=== PATIENT | female | born 1960 | race Caucasian/White ===

== ENCOUNTER 2018-03-02 10:14 | Inpatient (IN) | payer MEDICARE, OTHER ==
[2018-02-20 15:09] VITALS: BMI 32.4
--- NOTE | 2018-03-01 16:59 | HP ---
HISTORY AND PHYSICAL SURGERY: 03/02/2018 Tran Iqbal is a 58-year-old patient seen with symptomatic left knee osteoarthritis. After having treatment options discussed, she elected to proceed with left total knee arthroplasty. Consent regarding the procedure was obtained. Medical clearance was provided by Dr. Hector. PAST MEDICAL HISTORY: Noncontributory. PAST SURGICAL HISTORY: None reported. DAILY MEDICATIONS: Aleve. ALLERGIES: None. SOCIAL HISTORY: Patient denies tobacco use. PHYSICAL EXAMINATION: Evaluation of the left knee: Range of motion is -2 to 115 degrees. Tenderness medial joint line. Crepitus medial and patellofemoral compartments with range of motion. Pain with patellofemoral compression. Ligaments stable. Hip rotation without pain. Distal neurovascular exam is intact. RADIOGRAPHS: Radiographs of the left knee reveal severe medial moderate to severe patellofemoral compartment osteoarthritis. IMPRESSION: Left knee osteoarthritis. PLAN: Left total knee arthroplasty. MMODL / IJN: [id number] /
[~2018-03-02 10:14] MED LIST: ACETAMINOPHEN TAB 500 MG TAB PO ONE; DEXAMETHASONE SOD PHOSPHATE 10 MG/ML 1 ML VIAL IV ONE; MELOXICAM 7.5 MG TAB PO ONE; MIDAZOLAM 2 MG/2 ML VIAL IV PRN; ONDANSETRON 4 MG/2 ML VIAL IVP ONE; SCOPOLAMINE 1.5MG/72HR PATCH TRANSDERM ONE; TRANEXAMIC ACID 1,000 MG in SODIUM CHLORIDE 0.9% 50 ML IVPB ONE; ceFAZolin IN SWFI 2 GM/20 ML SYRINGE IVP ONE
[2018-03-02] MEDS: LACTATED RINGERS 1,000 ML IV SCH ×2 (11:10→17:53)
[2018-03-02] MEDS ORDERED: LIDOCAINE 1% 20 ML VIAL (10MG/ML) FOR IV START INTRADERMA ONE (11:11)
[2018-03-02] MEDS ORDERED: fentaNYL (PF) 50 MCG/ML 2 ML AMP IVP ONE ×2 (11:22→13:05)
[2018-03-02] MEDS ORDERED: ROPIVACAINE 1,100 MG, SODIUM CHLORIDE 0.9% 500 ML 330 ML MISCELLANE PRN ×2 (11:52)
--- NOTE | 2018-03-02 11:54 | P.ONQ ---
Anesthesiology Proc Note - PNB - Peripheral Nerve Block Performed Left Adductor Canal Infusion Time Out Performed: Yes Procedure Start Time: 11:18 Indication: Acute Post-Operative Pain, Analgesia Specifically requested for management of pain by DrHumberto: Campos Yousif Sedation Type: Sedate with meaningful contact maintained Preparation: Sterile Prep Position: Supine Catheter Depth at Skin (cm): 8 Catheter: Indwelling Needle Types: Other (see comment) (pajunk) Needle Size: 100mm (4") Needle Gauge: 18 Technique: Ultrasound Injectate: 0.5% Ropivacaine (see comment for volume) (20cc) Blood Aspirated: No Pain Paresthesia on Injection Noted: No Resistance on Injection: Normal Events: Uneventful and Well Tolerated
[2018-03-02] MEDS ORDERED: ROPIVACAINE 246.25 MG, EPINEPHrine 0.5 MG, KETOROLAC 30 MG, cloNIDine HCL/PF 80 MCG, WA... MISCELLANE ONE ×5 (12:17)
[2018-03-02] MEDS ORDERED: MIDAZOLAM 2 MG/2 ML VIAL IVP ONE (13:05)
[2018-03-02] MEDS ORDERED: SODIUM CHLORIDE 0.9% 250 ML BAG ONE (13:09)
[2018-03-02] MEDS ORDERED: LIDOCAINE 1% INJ 10MG/ML (20 ML MDV) ONE (13:09)
[2018-03-02] MEDS ORDERED: PROPOFOL 10 MG/ML 20 ML VIAL IV ONE (13:09)
[2018-03-02] MEDS ORDERED: MIDAZOLAM 2 MG/2 ML VIAL ONE (13:09)
[2018-03-02] MEDS ORDERED: TRANEXAMIC ACID 1,000 MG/10 ML VIAL ONE (13:09)
[2018-03-02] MEDS ORDERED: fentaNYL (PF) 50 MCG/ML 2 ML AMP ONE (13:09)
[2018-03-02] MEDS ORDERED: ceFAZolin 3,000 MG in SODIUM CHLORIDE 0.9% IRRIGATIO 3,000 ML IRRIGATION ONE (13:46)
[2018-03-02] MEDS ORDERED: SODIUM CHLORIDE 0.9% 500 ML 500 ML IV ONE (14:40)
[2018-03-02] MEDS ORDERED: LACTATED RINGERS 1,000 ML IV ONE (14:40)
[2018-03-02] MEDS ORDERED: ONDANSETRON 4 MG/2 ML VIAL IVP PRN (15:16)
[2018-03-02] MEDS ORDERED: NALOXONE 0.4 MG/ML 1 ML VIAL IV PRN (15:16)
[2018-03-02] MEDS ORDERED: HYDROcodone/APAP 5-325MG 1 EACH TAB PO PRN (15:16)
[2018-03-02] MEDS ORDERED: HYDROmorphone 1 MG/ML 1 ML SYRINGE IVP PRN (15:16)
--- NOTE | 2018-03-02 15:16 | P.OP ---
Date of Procedure: 03/02/18 Preoperative Diagnosis: Left knee osteoarthritis Postoperative Diagnosis: Same Procedure(s) Performed: Left total knee arthroplasty Implants: 1. Depuy attune size 6 narrow left cruciate retaining cemented femur 2. Depuy attune size 6 cemented fixed tibial baseplate 3. Depuy attune size 6 polyethylene tibial insert 7 millimeter fixed bearing cruciate retaining 4. Depuy attune 38 mm all polyethylene cemented patella Anesthesia: GETA, MAC, regional (Adductor canal catheter) Surgeon: Campos Yousif Turbine Attendant #1: Sunday James Estimated Blood Loss (ml): 50 Pathology: other (Bone) Condition: stable Disposition: PACU Indications for Procedure: 58-year-old patient seen with symptomatic left knee osteoarthritis. After treatment options discussed, she elected to proceed with total knee arthroplasty. Operative Findings: See description of procedure Description of Procedure: Patient was taken to the operative suite after having an adductor canal catheter placed by the department of anesthesia for postoperative pain control. Patient underwent a spinal anesthetic by the department of anesthesia. Patient was given preoperative IV intake antibiotics and TXA. A well-padded tourniquet was placed about the left lower extremity. The lower extremity was then prepped and draped in the normal sterile orthopedic fashion. The extremity was elevated, a tourniquet was insufflated to 300. A standard anterior incision was made sharply through skin. The patient did feel pain at the incision site. At this point a general anesthetic was administered by the department anesthesia. We noted complete anesthesia and the case resumed. I finished the superficial skin incision. Dissection was taken down through the subcutaneous soft tissues down to the extensor mechanism. A medial arthrotomy was performed, patella was everted and knee was flexed. There was advanced osteoarthritis noted. I introduced my distal intramedullary femoral drill. I then introduced the distal femoral cutting jig. Nathan KRAFT secured the cutting jig with 2 pins. I held retractors in position while Nathan KRAFT performed the distal femoral resection through the guide area we now removed her distal femoral cutting guide. We now placed our 4-in-1 femoral cutting block and positioned and it was secured with 2 pins by Nathan KRAFT while I held the block in position. The distal femoral finishing was now completed. A proximal tibial cutting guide was positioned. I held the guide in the appropriate position with both hands well Nathan KRAFT inserted stabilizing pins into the guide. Proximal tibial cut was made. We now placed a trial femoral component into position, along with an appropriate size tibial tray and insert. We now took the knee through range of motion and had full extension good flexion and good overall soft tissue balance noted. The patella was everted and stabilized with 2 towel clips held by Nathan KRAFT while I performed a flush with patellar quad tendon utilizing a fresh sawblade. We templated the patella, appropriate drill holes were made. An appropriate trial patella was positioned, knee was taken through full range of motion with the patella tracking very nicely. The trial patella was removed. Drill holes were made through the femoral component. All trial components were removed after marking off the appropriate rotation of the tibia. Retractors were now positioned along the proximal tibia. An appropriate keel punch was made with the appropriate size tibial guide by myself on Nathan KRAFT assisted by holding retractors. At this point appropriate size implants were chosen and opened. The joint was irrigated copiously with pulse lavage mechanical irrigation. The posterior capsule was infiltrated with local analgesic. The wound was irrigated with pulse lavage mechanical irrigation. We mixed antibiotic methylmethacrylate. We placed the knee into flexion. We placed multiple retractors assisted by Nathan KRAFT to expose the proximal tibia. Once the methyl methacrylate was ready, the tibial component was cemented into place removing any excess methylmethacrylate form by both myself and Nathan KRAFT. The femoral component was cemented into place removing the removing any excess methylmethacrylate performed by both myself and Nathan KRAFT. We then inserted the appropriate size polyethylene tibial insert. We made sure that it was locked into position. We took the knee into full extension, and then back in a flexion making sure we had removed any excess methylmethacrylate. The patellar component was then cemented down and secured with clamp. Excess methylmethacrylate removed. We kept the knee in full extension, patellar clamp in position until methylmethacrylate had hardened. Once it had hardened the patellar clamp was removed. The knee was taken through full range of motion. The patella tracked nicely. There was good soft tissue balancing. The tourniquet was now released. Additional hemostasis was achieved via electrocautery. A second gram of TXA was given. The wound again was irrigated with pulse lavage mechanical irrigation. The superficial soft tissues were infiltrated local analgesic. The extensor mechanism was repaired with Vicryl. We checked the repair with range of motion and it was stable. The subcutaneous soft tissues were repaired with Vicryl in layers. The skin was approximated with pernio/Dermabond. Sterile dressings were applied followed by loose web roll and Raffi bandage. The patient was transferred to a bed, and taken to recovery in stable and satisfactory condition. Nathan KRAFT assisted with this complex procedure.
[2018-03-02] MEDS: HYDROmorphone 0.5 MG/0.5 ML SYRINGE IVP PRN ×3 (15:41→16:03)
--- NOTE | 2018-03-02 15:52 | XR ---
EXAMINATION TYPE: XR knee limited LT DATE OF EXAM: 03/02/2018 COMPARISON: NONE HISTORY: 58-year-old female evaluation for postoperative abnormality and alignment TECHNIQUE: 2 views FINDINGS: Anterior skin beverly with anterior soft tissue swelling with soft tissue air as well as intra-articu lar air compatible with recent operation. Images show placement of left total knee arthroplasty. Both distal femoral and proximal tibial components of the prosthesis are well seated without periprosthet ic fracture. Alignment grossly anatomic. IMPRESSION: Uncomplicated postoperative appearance left total knee arthroplasty.
[2018-03-02] MEDS: HYDROmorphone 1 MG/ML 1 ML SYRINGE IVP PRN ×2 (16:08→17:17)
[2018-03-02] MEDS: HYDROcodone/APAP 5-325MG 1 EACH TAB PO PRN (19:04)
[2018-03-02] MEDS: ceFAZolin IN SWFI 2 GM/20 ML SYRINGE IVP SCH (20:47)
[2018-03-02] MEDS: ENOXAPARIN 30 MG/0.3 ML SYRINGE SQ SCH (20:47)
[2018-03-02] MEDS ORDERED: TEMAZEPAM 15 MG CAP PO PRN (21:43)
--- NOTE | 2018-03-02 23:33 | CONS ---
CONSULTATION DATE OF CONSULTATION: 03/02/2018. REASON FOR CONSULTATION: Medical management requested by Dr. Yousif. CONSULTATION: This is a pleasant 58-year-old patient who has undergone a left total knee arthroplasty. Some pain present in the operative site. No nausea, vomiting. No chest pain. PAST MEDICAL HISTORY: Chronic stable medical conditions include fibromyalgia, primary osteoarthritis, GERD, and chronic insomnia. Denies any cardiac history. No dizziness. No lightheadedness right now. Did tolerate some diet. Propped up in bed. REVIEW OF SYSTEMS: CONSTITUTIONAL: None. HEENT: None. RESPIRATORY: None. GASTROINTESTINAL: Heartburn. GENITOURINARY: None. MUSCULOSKELETAL: Arthritic pain in many joints. DERMATOLOGICAL: None. HEMATOLOGIC: None. LYMPHATIC: None. PSYCHIATRY: None. NEUROLOGICAL: Does not sleep well. PAST MEDICAL HISTORY: Fibromyalgia, osteoarthritis, insomnia, GERD. PAST SURGICAL HISTORY: Breast surgery, cholecystectomy, tubal ligation, pulmonary disease, right shoulder surgery x3, left shoulder surgery, left knee surgery, breast implants, tummy tuck. PSYCHIATRY: History of anxiety. SOCIAL HISTORY: The patient smoked for about 14 years, stopped smoking 26 years ago. Alcohol occasionally. The patient lives with son and [id number]. FAMILY HISTORY: Cancer, type unknown. HOME MEDICATIONS: 1. Ultram 1 tablet p.o. at bedtime p.r.n. 2. Restoril 50 mg at bedtime p.r.n. 3. Aleve 220 mg p.o. b.i.d. 4. Fosamax 70 mg p.o. on Friday. ALLERGIES: None. PHYSICAL EXAMINATION: Temperature 97, pulse 73, respirations 16, blood pressure 109/69, pulse 97% on room air. Recently when I saw the patient, 94% on room air. GENERAL APPEARANCE: Well built. BMI 32.4. Sitting up, comfortable. EYES: Pupils equal. Conjunctivae normal. HEENT: External nose and ears normal. Oral cavity normal. NECK: JVD not raised. Mass not palpable. Respiratory effort normal. LUNGS: Fair air entry. CARDIOVASCULAR: 1st and 2nd heart sounds. No edema. ABDOMEN: Soft, nontender. Liver and spleen not palpable. LYMPHATIC: No lymph nodes palpable in the neck or axillae. PSYCHIATRY: Alert and oriented x3. Mood and affect normal. NEUROLOGICAL: Pupils equal. Cranial nerves grossly intact. Power and sensation grossly intact. MUSCULOSKELETAL: Evidence of osteoarthritis especially in the hands. Dressing over the left knee. INVESTIGATIONS: No blood work. ASSESSMENT: 1. Left total knee arthroplasty. 2. Chronic fibromyalgia. 3. Primary osteoarthritis, bilateral. 4. Chronic insomnia idiopathic. 5. Gastroesophageal reflux disease. 6. Obesity, BMI 32.4. PLAN: The patient's Restoril will be resumed. The patient is on IV Ancef. Also getting Lovenox for DVT prophylaxis. Pain control is in place per Dr. Yousif. Patient also getting IV fluids. The patient is to see a dietitian for weight loss as an outpatient. Thank you, Dr. Yousif. MMYESSYL / KRISTIN: [id number] /
[2018-03-03] MEDS: LACTATED RINGERS 1,000 ML IV SCH ×4 (02:56→20:39)
[2018-03-03] MEDS: ceFAZolin IN SWFI 2 GM/20 ML SYRINGE IVP SCH (04:46)
[2018-03-03] MEDS: HYDROcodone/APAP 5-325MG 1 EACH TAB PO PRN ×2 (04:51→11:21)
[2018-03-03 07:41] LABS: Basophils % (A) 0 %; Eosinophils # (A) 0.1 k/uL (0-0.7); Eosinophils % (A) 1 %; HCT 32.5 % (34.0-46.0); HGB 10.5 gm/dL (11.4-16.0); Lymphocytes # (A) 0.9 k/uL (1.0-4.8); Lymphocytes % (A) 14 %; MCH 28.6 pg (25.0-35.0); MCHC 32.3 g/dL (31.0-37.0); MCV 88.5 fL (80.0-100.0); Mean Platelet Volume 7.2; Monocytes # (A) 0.4 k/uL (0-1.0); Monocytes % (A) 5 %; Neutrophils # (A) 5.3 k/uL (1.3-7.7); Neutrophils % (A) 79 %; Platelet Count 197 k/uL (150-450); RBC 3.68 m/uL (3.80-5.40); RDW 13.5 % (11.5-15.5); WBC 6.8 k/uL (3.8-10.6)
[2018-03-03] MEDS: MELOXICAM 7.5 MG TAB PO SCH (08:10)
[2018-03-03] MEDS: traMADol 50 MG TAB PO PRN (08:10)
[2018-03-03] MEDS: ENOXAPARIN 30 MG/0.3 ML SYRINGE SQ SCH ×2 (08:11→20:38)
--- NOTE | 2018-03-03 09:00 | P.PN ---
Progress Note - Text Progress Note Date: 03/03/18 Vital Signs - 8 hr 03/03/18 07:00 Temperature 98.5 F Pulse Rate [ 83 Pulse Oximetery ] Respiratory 18 Rate Blood Pressure 99/62 [Right Arm Sitting] O2 Sat by Pulse 94 L Oximetry Date of service 03/03/2018 Anesthesia pain rounds Patient evaluated at the bedside at 7:05 AM The patient is status post[ 1] adductor canal catheter placement. The catheter was placed for postoperative pain control, status post total left knee arthroplasty. Ropivacaine 0.2% is infusing at 8 mLs per hour. The patient has no complaints of the left lower extremity numbness or weakness. Patient's VAS score is VAS 2 -10. Assessment: Patient's adductor canal catheter is in place and working appropriately. Plan: continue infusion and adjust it as needed.
[2018-03-03] MEDS ORDERED: HYDROcodone/APAP 7.5-325MG 1 EACH TAB PO PRN (11:54)
--- NOTE | 2018-03-03 12:15 | P.PN ---
Subjective Progress Note Date: 03/03/18 Principal diagnosis: Status post left total knee arthroplasty Patient is seen today resting in her hospital bed. She did note some increase in pain, I did adjust her oral medication. She's ambulated with therapy. She denies any fevers or chills, chest pain or shortness of breath Objective - Vital Signs Vital signs: Vital Signs Temp 98.5 F 03/03/18 07:00 Pulse 83 03/03/18 07:00 Resp 18 03/03/18 07:00 BP 99/62 03/03/18 07:00 Pulse Ox 94 L 03/03/18 07:00 Intake & Output 03/02/18 03/03/18 03/03/18 18:59 06:59 18:59 Intake Total 1201 Output Total 50 Balance 1151 Weight 88.451 kg Intake: IV 1201 Output: Estimated Blood Loss 50 Other: # Voids 1 - Exam Left lower extremity: Incision is clean, dry, and intact. The exofin fusion tape is in good condition. There is minimal soft tissue swelling and ecchymosis surrounding the medial and lateral aspects of the incision. Calf is soft, no tenderness with palpation. Plantar flexion, dorsiflexion, EHL, FHL are intact. Sensory exam to light touch throughout the extremity is intact, dorsal pedis pulses 2+. - Labs CBC & Chem 7: 03/03/18 07:01 Labs: Abnormal Lab Results - Last 24 Hours (Table) 03/03/18 Range/Units 07:01 RBC 3.68 L (3.80-5.40) m/uL Hgb 10.5 L (11.4-16.0) gm/dL Hct 32.5 L (34.0-46.0) % Lymphocytes # 0.9 L (1.0-4.8) k/uL Assessment and Plan Plan: Assessment: Postop day 1 status post left total knee arthroplasty Plan: Pain control, I did increase [place] 7.5 mg/325 mg GI and DVT prophylaxis, continue current medication Daily dressing changes/ice and elevate Encourage incentive spirometer Continue work with physical therapy and use of CPM Medical recommendations Discharge planning: Overall discharged home tomorrow Time with Patient: Less than 30
[2018-03-03] MEDS: HYDROmorphone 1 MG/ML 1 ML SYRINGE IVP PRN ×3 (12:42→23:56)
--- NOTE | 2018-03-03 15:20 | US ---
EXAMINATION TYPE: US venous doppler duplex LE LT DATE OF EXAM: 03/03/2018 1:11 PM COMPARISON: NONE CLINICAL HISTORY: possible DVT. SIDE PERFORMED: Left TECHNIQUE: The lower extremity deep venous system is examined utilizing real time linear array sonog daja with graded compression, doppler sonography and color-flow sonography. VESSELS IMAGED: External Iliac Vein (EIV) Common Femoral Vein Deep Femoral Vein Greater Saphenous Vein * Femoral Vein Popliteal Vein Small Saphenous Vein * Proximal Calf Veins (* superficial vessels) Grayscale, color doppler, spectral doppler imaging performed of the deep veins of the left lower extr emity. There is normal flow, compressibility, vascular waveforms. Left Leg: Negative for DVT Patient of large body habitus with extensive swelling in left leg. Technically difficult study. IMPRESSION: No sonographic evidence of deep venous thrombosis within the left lower extremity.
[2018-03-03] MEDS: HYDROcodone/APAP 7.5-325MG 1 EACH TAB PO PRN (16:58)
--- NOTE | 2018-03-03 21:52 | PN ---
PROGRESS NOTE DATE OF SERVICE: 03/03/2018 PRESENTING COMPLAINT: Left knee arthroplasty. INTERVAL HISTORY: Patient is status post left knee arthroplasty. Some pain is present, though she did work with therapy. Did tolerate some diet. No dizziness. No lightheadedness. No nausea or vomiting. She is complaining, in fact a couple of times, about swelling in the left leg. REVIEW OF SYSTEMS: Done for constitutional, cardiovascular, GI, pulmonary; relevant findings as above. CURRENT MEDICATIONS: Reviewed. PHYSICAL EXAMINATION: Temperature 98.5, pulse 83, respiration 18, blood pressure 99/62, pulse ox 94% on room air. GENERAL APPEARANCE: Sitting up on bed, a bit anxious. EYES: Pupils equal. Conjunctivae normal. HEENT: External appearance of nose and ears normal. Oral cavity normal. NECK: JVD not raised. Mass not palpable. RESPIRATORY: Effort normal. LUNGS: Fair air entry. CARDIOVASCULAR: First and second sounds normal. Some left lower extremity edema. ABDOMEN: Soft, non-tender. Liver and spleen not palpable. LEFT KNEE: In a dressing. INVESTIGATIONS: Hemoglobin 10.5. ASSESSMENT: 1. Left total knee arthroplasty. 2. Chronic fibromyalgia. 3. Primary osteoarthritis, bilateral. 4. Chronic insomnia, idiopathic. 5. Gastroesophageal reflux disease. 6. Obesity; body mass index 32.4. 7. Swelling of the left lower extremity. Rule out DVT. PLAN: Continue current medication and treatment plan. I did order a Doppler ultrasound to rule out DVT in the left lower extremity, though this could be a burst of venous insufficiency. Care was discussed with the patient. Thank you, Dr. Yousif. MMYESSYL / KRISTIN: [id number] /
--- NOTE | 2018-03-04 00:25 | CONS ---
CONSULTATION ADDENDUM TO CONSULTATION DATE OF CONSULTATION: 03/02/2018. CONSULTATION: This is a pleasant 58-year-old patient who has undergone a left total knee arthroplasty. Some pain at the operative site. No nausea, vomiting. No chest pain. Denies any cardiac history. The patient's chronic stable medical conditions include fibromyalgia, primary osteoarthritis, GERD, and chronic insomnia. No lightheadedness right now. Did tolerate some diet. Propped up in bed. MMODL / IJN: [id number] /
[2018-03-04] MEDS: HYDROcodone/APAP 7.5-325MG 1 EACH TAB PO PRN ×3 (02:19→17:15)
[2018-03-04] MEDS: HYDROmorphone 1 MG/ML 1 ML SYRINGE IVP PRN ×4 (03:28→21:48)
[2018-03-04] MEDS: LACTATED RINGERS 1,000 ML IV SCH ×3 (05:56→17:41)
[2018-03-04] MEDS: ENOXAPARIN 30 MG/0.3 ML SYRINGE SQ SCH ×2 (09:04→20:02)
[2018-03-04] MEDS: MELOXICAM 7.5 MG TAB PO SCH (09:05)
--- NOTE | 2018-03-04 10:49 | P.PN ---
Subjective Progress Note Date: 03/04/18 Principal diagnosis: Status post left total knee arthroplasty Patient is seen today resting in her hospital bed. Patient's pain is better controlled today. She's ambulated with therapy. She denies any fevers or chills, chest pain or shortness of breath Objective - Vital Signs Vital signs: Vital Signs Temp 98.5 F 03/04/18 07:00 Pulse 98 03/04/18 07:00 Resp 18 03/04/18 07:00 BP 116/73 03/04/18 07:00 Pulse Ox 95 03/04/18 07:00 Intake & Output 03/03/18 03/04/18 03/04/18 18:59 06:59 18:59 Intake Total 1000 700 Balance 1000 700 Intake: Intake, IV Titration 800 300 Amount Lactated Ringers 1,000 ml 800 300 @ 100 mls/hr IV .Q10H TANNER Rx#:[id number] Oral 400 Other 200 Other: # Voids 3 3 - Exam Left lower extremity: Incision is clean, dry, and intact. The exofin fusion tape is in good condition. There is minimal soft tissue swelling and ecchymosis surrounding the medial and lateral aspects of the incision. Calf is soft, no tenderness with palpation. Plantar flexion, dorsiflexion, EHL, FHL are intact. Sensory exam to light touch throughout the extremity is intact, dorsal pedis pulses 2+. - Labs CBC & Chem 7: 03/03/18 07:01 Assessment and Plan Plan: Assessment: Postop day #2 status post left total knee arthroplasty Plan: Pain control, continue current medications GI and DVT prophylaxis, continue current medication Daily dressing changes/ice and elevate Encourage incentive spirometer Continue work with physical therapy and use of CPM Medical recommendations Discharge planning: Likely discharge home tomorrow Time with Patient: Less than 30
--- NOTE | 2018-03-04 16:14 | PN ---
PROGRESS NOTE DATE OF SERVICE: 03/04/2018 PRESENTING COMPLAINT: Left knee arthroplasty. INTERVAL HISTORY: Patient is status post left knee arthroplasty. Pain is doing much better. Up and about. No dizziness. No lightheadedness. Did have a diet. Feeling well. REVIEW OF SYSTEMS: Done for constitutional, cardiovascular, GI, pulmonary; relevant findings as above. CURRENT MEDICATIONS: Reviewed. PHYSICAL EXAMINATION: VITAL SIGNS: Temperature 98.5, pulse 98, respiratory 18, blood pressure 116/73, pulse 95% on room air. GENERAL APPEARANCE: Sitting up, feeling comfortable. EYES: Pupils are equal. Conjunctivae normal. HEENT external appearance of nose and ears normal. Oral cavity normal. NECK: JVD not raised. Mass not palpable. RESPIRATORY: Effort normal. LUNGS are clear. CARDIOVASCULAR: 1st and 2nd sounds normal. No edema. ABDOMEN: Soft, nontender. Liver and spleen not palpable. PSYCHIATRY: Alert and oriented x3. Mood and affect normal. INVESTIGATIONS: No blood work from today. ASSESSMENT: 1. Left total knee arthroplasty. 2. Chronic fibromyalgia. 3. Primary osteoarthritis, bilateral. 4. Chronic insomnia idiopathic. 5. Gastroesophageal reflux disease. 6. Obesity; BMI 32.1. 7. Deep vein thrombosis ruled out. PLAN: Patient doing well. Continue current medication and treatment plan. Per Orthopedics, incision is healing well. MMODL / IJN: [id number] /
[2018-03-04] MEDS: traMADol 50 MG TAB PO PRN (21:09)
[2018-03-05] MEDS: LACTATED RINGERS 1,000 ML IV SCH ×4 (02:00→20:27)
[2018-03-05] MEDS: HYDROcodone/APAP 7.5-325MG 1 EACH TAB PO PRN ×2 (04:24→17:44)
[2018-03-05] MEDS: ENOXAPARIN 30 MG/0.3 ML SYRINGE SQ SCH ×2 (08:05→20:16)
[2018-03-05] MEDS: MELOXICAM 7.5 MG TAB PO SCH (08:05)
[2018-03-05] MEDS: HYDROmorphone 1 MG/ML 1 ML SYRINGE IVP PRN ×3 (08:07→21:11)
[2018-03-05 08:56] LABS: Basophils % (A) 0 %; Eosinophils # (A) 0.3 k/uL (0-0.7); Eosinophils % (A) 5 %; HCT 32.3 % (34.0-46.0); HGB 10.3 gm/dL (11.4-16.0); Hypochromasia Slight; Lymphocytes # (A) 0.7 k/uL (1.0-4.8); Lymphocytes % (A) 14 %; MCH 28.7 pg (25.0-35.0); MCHC 31.9 g/dL (31.0-37.0); Mean Platelet Volume 7.1; Monocytes # (A) 0.4 k/uL (0-1.0); Monocytes % (A) 7 %; Neutrophils # (A) 3.5 k/uL (1.3-7.7); Neutrophils % (A) 71 %; Platelet Count 218 k/uL (150-450); RBC 3.58 m/uL (3.80-5.40); RDW 13.9 % (11.5-15.5); WBC 4.8 k/uL (3.8-10.6)
--- NOTE | 2018-03-05 14:14 | P.PN ---
Subjective Progress Note Date: 03/05/18 Principal diagnosis: Status post left total knee arthroplasty Patient is seen today resting in her hospital bed. Patient's pain is better controlled today. She's ambulated with therapy. She denies any fevers or chills, chest pain or shortness of breath Objective - Vital Signs Vital signs: Vital Signs Temp 98.2 F 03/05/18 07:00 Pulse 93 03/05/18 08:00 Resp 16 03/05/18 08:00 BP 132/76 03/05/18 07:00 Pulse Ox 91 L 03/05/18 07:00 Intake & Output 03/04/18 03/05/18 03/05/18 18:59 06:59 18:59 Intake Total 780 500 Balance 780 500 Intake: Oral 780 500 Other: # Voids 3 2 - Exam Left lower extremity: Incision is clean, dry, and intact. The exofin fusion tape is in good condition. There is minimal soft tissue swelling and ecchymosis surrounding the medial and lateral aspects of the incision. Calf is soft, no tenderness with palpation. Plantar flexion, dorsiflexion, EHL, FHL are intact. Sensory exam to light touch throughout the extremity is intact, dorsal pedis pulses 2+. - Labs CBC & Chem 7: 03/05/18 07:22 Labs: Abnormal Lab Results - Last 24 Hours (Table) 03/05/18 Range/Units 07:22 RBC 3.58 L (3.80-5.40) m/uL Hgb 10.3 L (11.4-16.0) gm/dL Hct 32.3 L (34.0-46.0) % Lymphocytes # 0.7 L (1.0-4.8) k/uL Assessment and Plan Plan: Assessment: Postop day #3 status post left total knee arthroplasty Plan: Pain control, continue current medications GI and DVT prophylaxis, continue current medication Daily dressing changes/ice and elevate Encourage incentive spirometer Continue work with physical therapy and use of CPM Medical recommendations Discharge planning: Stable for dc today, pharmacies are closed, will dc home tomorrow Time with Patient: Less than 30
[2018-03-06] MEDS: HYDROcodone/APAP 7.5-325MG 1 EACH TAB PO PRN ×2 (00:09→06:20)
--- NOTE | 2018-03-06 00:15 | PN ---
PROGRESS NOTE DATE OF SERVICE: 03/05/2008 This 58-year-old woman was admitted after left total knee arthroplasty, also had chronic fibromyalgia. No chest pain. No palpitations. No fever. PHYSICAL EXAM: Alert and oriented. Pulse 93, blood pressure 130/76, respirations 16, temperature 98.2, pulse ox 91% on room air. HEENT: Conjunctivae normal. Oral mucosa. NECK: No jugular venous distention. No lymph node enlargement. CARDIOVASCULAR: S1, S2. RESPIRATORY: Diminished breath sounds at the bases. No rhonchi, no crackles. ABDOMEN: Soft, nontender. LEGS: Status post knee arthroplasty. NERVOUS SYSTEM: No focal deficits. LABS: WBC 4.8, hemoglobin 10.3. ASSESSMENT: 1. Status post left total knee arthroplasty. 2. Chronic fibromyalgia. 3. DJD, bilateral. 4. Chronic insomnia, idiopathic. 5. GERD. 6. Obesity. 7. DVT ruled out. RECOMMENDATIONS: Continue current management, continue symptomatic treatment. Continue DVT prophylaxis. Resume the home medications. Closely follow with the primary physician in outpatient setting after discharge. Further recommendations to follow. MMODL / IJN: [id number] /
[2018-03-06] MEDS: LACTATED RINGERS 1,000 ML IV SCH (04:05)
--- NOTE | 2018-03-06 07:50 | P.PN ---
Subjective Progress Note Date: 03/06/18 Principal diagnosis: Status post left total knee arthroplasty Patient is seen today resting in her hospital bed. Patient's pain is better controlled today. She's ambulated with therapy. She denies any fevers or chills, chest pain or shortness of breath Objective - Vital Signs Vital signs: Vital Signs Temp 98.3 F 03/05/18 23:43 Pulse 95 03/05/18 23:43 Resp 14 03/05/18 23:43 BP 116/74 03/05/18 23:43 Pulse Ox 95 03/05/18 23:43 Intake & Output 03/05/18 03/06/18 03/06/18 18:59 06:59 18:59 Intake Total 500 780 Balance 500 780 Intake: Oral 500 780 Other: # Voids 2 - Exam Left lower extremity: Incision is clean, dry, and intact. The exofin fusion tape is in good condition. There is minimal soft tissue swelling and ecchymosis surrounding the medial and lateral aspects of the incision. Calf is soft, no tenderness with palpation. Plantar flexion, dorsiflexion, EHL, FHL are intact. Sensory exam to light touch throughout the extremity is intact, dorsal pedis pulses 2+. - Labs CBC & Chem 7: 03/05/18 07:22 Labs: Abnormal Lab Results - Last 24 Hours (Table) 03/05/18 Range/Units 07:22 RBC 3.58 L (3.80-5.40) m/uL Hgb 10.3 L (11.4-16.0) gm/dL Hct 32.3 L (34.0-46.0) % Lymphocytes # 0.7 L (1.0-4.8) k/uL Assessment and Plan Plan: Assessment: Postop day #4 status post left total knee arthroplasty Plan: Pain control, continue current medications GI and DVT prophylaxis, continue current medication Daily dressing changes/ice and elevate Encourage incentive spirometer Continue work with physical therapy and use of CPM Medical recommendations Discharge planning: Stable for dc today, will dc home today Time with Patient: Less than 30
[2018-03-06] MEDS: MELOXICAM 7.5 MG TAB PO SCH (07:57)
[2018-03-06] MEDS: ENOXAPARIN 30 MG/0.3 ML SYRINGE SQ SCH (07:57)
[2018-03-06 08:35] VITALS: BP 135/74; PULSE 107; RESP 16; TEMP 98.2
[2018-03-06] MEDS: traMADol 50 MG TAB PO PRN (11:04)
== END 2018-03-06 11:15 | disposition home health service (06) | DRG 470 ==
LOC: 2ORMAIN 10:14 → 4SSUR 15:23
PROVIDERS: ADMIT Orthopaedic Surgery; ATTEND Orthopaedic Surgery
PROC: 0SRD0J9 Replacement of Left Knee Joint with Synthetic Substitute, Cemented, Open Approach (ICD-10-PCS; principal; 2018-03-02 12:50)
DX: M17.12 Unilateral primary osteoarthritis, left knee (principal); M79.7 Fibromyalgia; K21.9 Gastro-esophageal reflux disease without esophagitis; F51.04 Psychophysiologic insomnia; Z90.49 Acquired absence of other specified parts of digestive tract; Z98.82 Breast implant status; F41.9 Anxiety disorder, unspecified; Z87.891 Personal history of nicotine dependence; Z80.9 Family history of malignant neoplasm, unspecified; Z79.83 Long term (current) use of bisphosphonates; Z79.1 Long term (current) use of non-steroidal anti-inflammatories (NSAID); Z79.891 Long term (current) use of opiate analgesic; Z68.32 Body mass index [BMI] 32.0-32.9, adult; E66.9 Obesity, unspecified
CPT/HCPCS: 85025; 88300

== ENCOUNTER → 2024-10-25 | Outpatient (CLI) | payer MEDICARE, OTHER | END | disposition home or self-care (01) | LOC: LABPAT 12:59 | PROVIDERS: ATTEND Orthopaedic Surgery | DX: Z01.812 Encounter for preprocedural laboratory examination (principal); Z22.322 Carrier or suspected carrier of Methicillin resistant Staphylococcus aureus; M19.011 Primary osteoarthritis, right shoulder | CPT/HCPCS: 87070 ==